=== PATIENT | female | born 1965 | race Two or more races ===

== ENCOUNTER → 2025-04-07 | Outpatient (CLI) | payer MEDICAID, SELFPAY ==
--- NOTE | 2025-04-07 16:05 | XR_ITS ---
Examination: Lumbar spine, 5 views Technique: Lumbar spine AP, lateral, coned lateral lower lumbar spine, bilateral obliques 5 views Exam date and time: April 07, 2025 1508 hours INDICATIONS: Low back pain beginning 2 months ago. FINDINGS: Lumbar levoscoliosis 10 degrees Moderate diffuse facet arthropathy. No lumbar fracture Mild lumbar spondylosis Mild diffuse lumbar disc narrowing IMPRESSION: Mild diffuse lumbar disc narrowing
== END | disposition home or self-care (01) ==
PROVIDERS: PCP Registered Nurse Community Health
DX: M54.41 Lumbago with sciatica, right side (principal); M48.061 Spinal stenosis, lumbar region without neurogenic claudication
CPT/HCPCS: 72110

== ENCOUNTER → 2025-07-21 | Outpatient (CLI) | payer MEDICAID, SELFPAY ==
--- NOTE | 2025-07-21 08:30 | XR_ITS ---
Examination: MRI lumbar spine without contrast Date and time of exam: July 21, 2025, 0855 hours INDICATIONS: Low back pain beginning 2 years ago radiating to the right hip Technique: Multiple MRI axial and sagittal sections lumbar spine. Sagittal T2-weighted images, TR 3500, TE 118 T1 weighted transverse sections, TR 688 T8.5, T2-weighted sagittal sections T1 weighted sagittal sections TR 621, TE 30 T2 axial sections, TR 4, 190, TE 84. Findings: Satisfactory alignment lumbar vertebral bodies on the lateral view Mild disc narrowing posteriorly L5-S1 Diffuse lumbar disc narrowing Mild lumbar spondylosis No lumbar fracture L5-S1 4 mm central lumbar disc bulge contiguous with the left S1 nerve root L4-L5 2 mm central lumbar disc bulge L3-L4 no disc protrusion L2-L3 2 mm central lumbar disc bulge L1-L2 no disc protrusion IMPRESSION: L5-S1 4 mm central lumbar disc bulge contiguous with the left S1 nerve root L4-L5 2 mm central lumbar disc bulge L2-L3 2 mm central lumbar disc bulge
== END | disposition home or self-care (01) ==
LOC: SMRI 08:06
PROVIDERS: PCP Registered Nurse Community Health; Referring Provider Registered Nurse Community Health; Visit Provider Registered Nurse Community Health
DX: M51.370 Other intervertebral disc degeneration, lumbosacral region with discogenic back pain only (principal); M51.360 Other intervertebral disc degeneration, lumbar region with discogenic back pain only
CPT/HCPCS: 72148